=== PATIENT | female | born 1985 | race Asian ===

== ENCOUNTER 2019-08-16 12:51 | Emergency (ER) | payer OTHER ==
[~2019-08-16] VITALS: Ht 160 cm; Wt 59.4 kg
[2019-08-16 12:56] VITALS: Ht 160 cm; Wt 59.4 kg
[2019-08-16 13:25] VITALS: BP 102/69
== END 2019-08-16 13:25 | disposition home or self-care (01) ==
LOC: ED 12:51
DX: R05 Cough (principal)

== ENCOUNTER 2020-07-14 13:15 | Emergency (ER) | payer OTHER ==
[~2020-07-14] VITALS: Ht 165.1 cm; Wt 56.2 kg
[2020-07-14 13:29] VITALS: Ht 165.1 cm; Wt 56.2 kg
[2020-07-14 16:41] LABS: PLATELET COUNT 222 x10^3mcL (179-408); RED CELL DISTRIBUTION WIDTH 12.6 % (12.3-17.7)
[2020-07-14 16:45] LABS: CALCIUM 8.6 mg/dL (8.5-10.1); CARBON DIOXIDE 32.6 mmol/L (21-32); CHLORIDE SERUM 105 mmol/L (98-107); CREATININE SERUM 0.8 mg/dL (0.6-1.0); GFR1 > 60 mL/min; GLUCOSE SERUM 105 mg/dL (74-106); POTASSIUM SERUM 4.9 mmol/L (3.5-5.1); SODIUM SERUM 138 mmol/L (136-145)
[2020-07-14 16:49] LABS: ALBUMIN 4.2 g/dL (3.4-5.0); ALKALINE PHOSPHATASE 49 U/L (46-116); ALT/SGPT 29 U/L (14-59); AST/SGOT 17 U/L (15-37); BILIRUBIN TOTAL 0.7 mg/dL (0.20-1.00); LIPASE 169 IU/L (73-393); TOTAL PROTEIN, SERUM 8.2 g/dL (6.4-8.2)
[2020-07-14 17:17] LABS: UA SPECIFIC GRAVITY 1.015 (1.005-1.035); microscopic required? YES; urine erythrocyte NEGATIVE (NEGATIVE)
[2020-07-14 18:31] VITALS: BP 102/57
== END 2020-07-14 18:31 | disposition home or self-care (01) ==
LOC: ED 13:15
PROVIDERS: Emergency Medicine
DX: N39.0 Urinary tract infection, site not specified (principal)
CPT/HCPCS: J7030; Q9967